=== PATIENT | female | born 1985 | race Caucasian/White ===

== ENCOUNTER 2019-08-17 16:03 | Outpatient (CLI) | payer MEDICAID, SELFPAY ==
--- NOTE | 2019-08-17 | US_ITS ---
WS: [id number] ULTRASOUND EARLY TECHNIQUE: Transabdominal sonography of the pelvis was performed. Followed by transvaginal sonography to better evaluate the uterus and ovaries. CLINICAL INFORMATION: DATING LMP: 06/09/2019 Beta hCG: Unknown. COMPARISON: None. FINDINGS: UTERUS AND GESTATIONAL SAC Intrauterine gestations: Estimated gestational age: 9w6d Yolk sac: 0.4 cm. [place] rump length (CRL): 3.0 cm. heart motion: 164 BPM. Subchorionic hemorrhage: None. OVARIES Right ovary: Normal. Left ovary: Normal. FREE FLUID None. US/US OB <= 14 weeks fetus [id number] IMPRESSION: 1. Single live intrauterine . 2. Estimated gestational age 9 weeks 6 days with estimated delivery February [id number]
== END 2019-08-17 16:04 | disposition home or self-care (01) ==
LOC: RAD 16:04
PROVIDERS: Family Provider Registered Nurse; PCP Registered Nurse; Visit Provider Family Medicine
DX: Z36.87 Encounter for antenatal screening for uncertain dates (principal); Z3A.09 9 weeks gestation of pregnancy
CPT/HCPCS: 76801

== ENCOUNTER 2019-10-30 10:08 | Outpatient (CLI) | payer MEDICAID, SELFPAY ==
--- NOTE | 2019-10-30 10:16 | US_ITS ---
WS: [id number] OBSTETRICAL ULTRASOUND COMPLETE HISTORY: ANATOMY CHECK COMPARISON: 08/17/2019 Single intrauterine gestation in breech presentation. Cervix is Closed and normal length. Cervical length is 4.3 cm. Normal amount of amniotic fluid surrounds the fetus. Placenta: Posterior and to the LEFT. No previa or abruption. Placenta grade 0 Heart: 160 BPM. Four chambers are identified. Anatomy: Intracranial structures and spine are normal. kidneys, stomach and urinary bladd er are unremarkable. Abdominal wall, three-vessel cord and cord insertion site are normal. 4 extremities are present. profile: Unremarkable. Gender: Female. measurements: BPD = 4.5 cm = 19w4d HC = 17.2 cm = 19w5d AC = 16.0 cm = 21w1d FL = 3.4 cm = 20w4d EFW: 370 g., Measurements are internally concordant. AGA by ultrasound: 20w2d SHELLIE by ultrasound: 03/16/2020 US/US OB >= 14 weeks fetus [id number] IMPRESSION: 1. Single intrauterine gestation of 20w2d with an SHELLIE of 03/16/2020. Appropria te growth since the first trimester ultrasound. 2. Unremarkable screening survey of anatomy.
== END 2019-10-30 10:09 | disposition home or self-care (01) ==
LOC: RAD 10:11
PROVIDERS: PCP Registered Nurse; Visit Provider Family Medicine
DX: O32.1XX0 Maternal care for breech presentation, not applicable or unspecified (principal); Z3A.20 20 weeks gestation of pregnancy
CPT/HCPCS: 76805

== ENCOUNTER 2020-03-05 11:50 | Outpatient (CLI) | payer MEDICAID, SELFPAY ==
[2020-03-05] VITALS (8 sets, daily range): BP systolic 0–127; BP diastolic 0–82; PULSE 78–92; RESP 18; TEMP 36.8; BMI 32.4
[2020-03-05] MEDS: acetaminophen 325 mg Tablet 650 MG PO (13:15)
== END 2020-03-05 13:35 | disposition home or self-care (01) ==
LOC: OPOB 11:56 → OBGYN 11:56
PROVIDERS: PCP Registered Nurse; Visit Provider Family Medicine
DX: O26.899 Other specified pregnancy related conditions, unspecified trimester (principal); Z3A.00 Weeks of gestation of pregnancy not specified; R10.9 Unspecified abdominal pain
CPT/HCPCS: 59025; 99211

== ENCOUNTER → 2020-05-26 08:26 | Outpatient (BNVA) | payer MEDICAID, SELFPAY | PROVIDERS: PCP Registered Nurse; Visit Provider Registered Nurse | DX: Z01.818 Encounter for other preprocedural examination (principal); F41.9 Anxiety disorder, unspecified; G89.18 Other acute postprocedural pain | CPT/HCPCS: 81025 ==

== ENCOUNTER 2020-07-09 14:52 | Outpatient (CLI) | payer MEDICAID, SELFPAY ==
--- NOTE | 2020-07-09 15:00 | USCV_ITS ---
Phillip Lashanda Age: 35 Gender: F : 1985 Exam Date: 07/09/2020 15:16 Ordering Phys: Gabrielle Rodriguez PLASTIC TILE LAYER Technologist: Walter Celeste Exam Location: [facility] [place] Indication: left groin pain PROCEDURES: Venous duplex imaging was performed in only the left lower extremity. The following venous structures were evaluated: common femoral vein, profunda vein, proximal portion of the greater saphenous vein, superficial femoral vein, and the popliteal vein. In addition, the posterior tibial and peroneal trunk were evaluated. Serial compression, augmentation maneuvers, and spectral Doppler flow evaluation were performed. FINDINGS: Normal 2-D Doppler and augmentation and compressibility throughout the lower extremity venous structures. Additional imaging through the proximal calf veins also reveals no thrombus. Limited evaluation of the greater saphenous vein is patent with no thrombus.. CONCLUSIONS No evidence of left lower extremity DVT. Bradley Gomez MD (Electronically Signed) Final Date: 09 July 2020 17:01 S
== END 2020-07-09 14:53 | disposition home or self-care (01) ==
PROVIDERS: PCP Registered Nurse; Visit Provider Registered Nurse
DX: R10.32 Left lower quadrant pain (principal)
CPT/HCPCS: 93971

== ENCOUNTER → 2021-08-18 14:54 | Outpatient (BNVA) | payer MEDICAID, SELFPAY | PROVIDERS: PCP Registered Nurse; Referring Provider Registered Nurse; Visit Provider Podiatrist Foot & Ankle Surgery | DX: M72.2 Plantar fascial fibromatosis (principal); F17.210 Nicotine dependence, cigarettes, uncomplicated; M79.671 Pain in right foot; M79.672 Pain in left foot | CPT/HCPCS: 73630; 99204 ==

== ENCOUNTER 2021-08-18 16:17 | Outpatient (CLI) | payer MEDICAID, SELFPAY | END 2021-08-18 16:18 | disposition home or self-care (01) | LOC: SPT 16:17 | PROVIDERS: PCP Registered Nurse; Visit Provider Podiatrist Foot & Ankle Surgery | DX: Z46.89 Encounter for fitting and adjustment of other specified devices (principal); M72.2 Plantar fascial fibromatosis | CPT/HCPCS: 97760; L4397 ==

== ENCOUNTER → 2021-09-23 13:02 | Outpatient (BNVA) | payer MEDICAID, SELFPAY | PROVIDERS: PCP Registered Nurse; Visit Provider Podiatrist Foot & Ankle Surgery | DX: M72.2 Plantar fascial fibromatosis (principal); M79.672 Pain in left foot; M79.671 Pain in right foot | CPT/HCPCS: 99214 ==

== ENCOUNTER → 2021-11-18 13:10 | Outpatient (BNVA) | payer MEDICAID, SELFPAY | PROVIDERS: PCP Registered Nurse; Visit Provider Podiatrist Foot & Ankle Surgery | DX: M72.2 Plantar fascial fibromatosis (principal) | CPT/HCPCS: 99213 ==

== ENCOUNTER → 2023-07-01 13:57 | Outpatient (BNVA) | payer MEDICAID, SELFPAY | PROVIDERS: PCP Registered Nurse; Visit Provider Registered Nurse | DX: N92.6 Irregular menstruation, unspecified (principal) | CPT/HCPCS: 81025 ==

== ENCOUNTER → 2023-07-11 11:49 | Outpatient (BNVA) | payer MEDICAID, SELFPAY | PROVIDERS: PCP Registered Nurse; Visit Provider Registered Nurse | DX: O03.9 Complete or unspecified spontaneous abortion without complication (principal) | CPT/HCPCS: 81025; 84702 ==

== ENCOUNTER → 2023-07-13 10:01 | Outpatient (BNVA) | payer MEDICAID, SELFPAY | PROVIDERS: PCP Registered Nurse; Visit Provider Registered Nurse | DX: O03.9 Complete or unspecified spontaneous abortion without complication (principal) | CPT/HCPCS: 84702 ==

== ENCOUNTER → 2023-08-02 11:09 | Outpatient (BNVA) | payer MEDICAID, SELFPAY | PROVIDERS: PCP Registered Nurse; Visit Provider Registered Nurse | DX: Z20.2 Contact with and (suspected) exposure to infections with a predominantly sexual mode of transmission (principal) | CPT/HCPCS: 81000; 87491; 87591 ==

== ENCOUNTER → 2024-11-14 12:03 | Outpatient (BNVA) | payer MEDICAID, SELFPAY | PROVIDERS: PCP Registered Nurse; Visit Provider Nurse Practitioner Women's Health | DX: Z00.00 Encounter for general adult medical examination without abnormal findings (principal) | CPT/HCPCS: 87624 ==

== ENCOUNTER → 2025-01-30 10:03 | Outpatient (BNVA) | payer MEDICAID, SELFPAY | PROVIDERS: PCP Registered Nurse; Visit Provider Podiatrist Foot & Ankle Surgery | DX: M79.671 Pain in right foot (principal); M79.672 Pain in left foot; G89.29 Other chronic pain; G57.92 Unspecified mononeuropathy of left lower limb; G57.91 Unspecified mononeuropathy of right lower limb; M79.89 Other specified soft tissue disorders | CPT/HCPCS: 73630 ==

== ENCOUNTER → 2025-02-25 10:03 | Outpatient (BNVA) | payer MEDICAID, SELFPAY | PROVIDERS: PCP Registered Nurse; Visit Provider Registered Nurse | DX: F33.0 Major depressive disorder, recurrent, mild (principal); R73.9 Hyperglycemia, unspecified; R35.0 Frequency of micturition | CPT/HCPCS: 80053; 81000; 83036; 84443; 85025 ==

== ENCOUNTER 2025-04-15 08:00 | Outpatient (CLI) | payer MEDICAID, SELFPAY ==
--- NOTE | 2025-04-15 08:00 | MRR_ITS ---
PROCEDURE INFORMATION: Exam: MR Left Lower Extremity Joint Without Contrast; Ankle Exam date and time: 04/15/2025 8:30 AM Age: 40 years old Clinical indication: Ankle; Left; Chronic pain worse x 1 year, pain with walking; Additional info: Eval tendon or ligament tear, atfla, peroneal TECHNIQUE: Imaging protocol: Magnetic resonance imaging of the left lower extremity without contrast. Exam focused on the ankle. COMPARISON: [place] [id number] ORTH 01/30/2025 10:15 AM FINDINGS: Bones/joints: There is mild bone marrow edema in the lateral inferior talus in the region of the lateral process. Moderate patchy bone marrow edema in the cuboid, and to a lesser extent within the lateral cuneiform is noted, with superimposed cortical lobulations involving the cuboid and lateral cuneiform at articulation. These regions of bone marrow edema or characterized by hyperintensity on the fluid sensitive sequences, with mild corresponding T1 hypointensity. The articular cartilage appears intact. No acute fracture. LIGAMENTS: Distal tibiofibular syndesmosis: Unremarkable. No tear. Anterior talofibular ligament: Unremarkable. No tear. Posterior talofibular ligament: Unremarkable. No tear. Calcaneofibular ligament: Unremarkable. No tear. Deltoid ligament complex: Unremarkable. No tear. TENDONS: Flexor tendons of foot: Mild abnormal fluid in the flexor digitorum longus and flexor hallucis longus tendon sheaths is present. Tibialis posterior tendon: Unremarkable as visualized. Peroneal tendons: Unremarkable as visualized. Extensor tendons of foot: Unremarkable as visualized. Tibialis anterior tendon: Unremarkable as visualized. Achilles tendon: Mild abnormal increased signal intensity is noted in the Achilles tendon. Tarsal canal (Sinus tarsi): Mild edema in the sinus tarsi is present. Tarsal tunnel: Unremarkable. Soft tissues: Diffuse mild subcutaneous edema is greatest along the lateral aspect of the ankle. No discrete fluid collection is noted. Mild extensor digitorum brevis muscle edema is noted. Plantar fascia: Mild horizontally oriented abnormal increased signal intensity is noted in the proximal fibers of the central plantar fascial bundle consistent with mild longitudinal tearing. MR/MR ankle LT wo con* [id number] IMPRESSION: 1. Edema in the sinus tarsi is present, which can be related to sinus tarsi syndrome. 2. Mild bone marrow edema in the lateral talar process, may be related to contusion or stress changes, or reactive edema secondary to edema in the adjacent sinus tarsi. 3. Bone marrow edema in the cuboid and lateral cuneiform is greatest at the articulation, which is characterized by cortical lobulations. This appearance can be related to primary osteoarthritic changes, early changes of inflammatory arthropathy, bone contusions, or stress changes. Osteomyelitis is not favored. 4. Mild Achilles tendinosis. 5. Mild flexor digitorum longus and flexor hallucis longus tenosynovitis. 6. Mild intrasubstance/longitudinal tear of the proximal plantar fascia. 7. Diffuse subcutaneous edema, without a discrete fluid collection. This appearance can be related to noninfectious inflammatory changes, venous stasis, or cellulitis. 8. Mild extensor digitorum brevis muscle edema colostomy related to strain. Less likely etiologies include neuropathic changes, or myositis.
== END 2025-04-15 08:01 | disposition home or self-care (01) ==
LOC: RAD 08:02
PROVIDERS: PCP Registered Nurse; Visit Provider Podiatrist Foot & Ankle Surgery
DX: M65.972 Unspecified synovitis and tenosynovitis, left ankle and foot (principal); M25.572 Pain in left ankle and joints of left foot; G57.92 Unspecified mononeuropathy of left lower limb
CPT/HCPCS: 73721